=== PATIENT | female | born 1995 | race Caucasian/White ===

== ENCOUNTER 2024-06-09 10:02 | Observation (INO) | payer OTHER, SELFPAY ==
[2024-06-09 10:14] VITALS: BP 128/77; BMI 30.2
== END 2024-06-09 11:49 | disposition home or self-care (01) ==
LOC: LDRP 10:02
PROVIDERS: ADMITTING PHYSICIAN Obstetrics & Gynecology; FAMILY PHYSICIAN Family Medicine
DX: E86.9 Volume depletion, unspecified (principal); J45.909 Unspecified asthma, uncomplicated; Z86.14 Personal history of Methicillin resistant Staphylococcus aureus infection; O99.820 Streptococcus B carrier state complicating pregnancy; Z3A.39 39 weeks gestation of pregnancy
CPT/HCPCS: 36415; 86850; 86900; 86901; G0378

== ENCOUNTER 2024-06-15 09:00 | Inpatient (IN) | payer OTHER, SELFPAY ==
[2024-06-15 09:04] VITALS: BMI 30.4
[2024-06-15 09:38] VITALS: BP 121/73
[2024-06-15] MEDS: LR 1000 IV ×2 (10:00→13:38)
[2024-06-15] MEDS: PENICILLIN 110 UNITS IV (10:24)
[2024-06-15 10:48] LABS: % Basophils 0.3 % (0-2); % Eosinophils 2.1 % (0-6); % Immature Granulocytes 1.1 % (0-0.5); % Lymphocytes 12.4 % (20.5-51.1); % Monocytes 6.8 % (1.7-9.3); % Neutrophils 77.3 % (42.2-75.2); Absolute Eosinophils 0.2 10^3/uL (0-0.7); Absolute Immature Granulocytes 0.1 10^3/uL (0-0.05); Absolute Lymphocytes 1.2 10^3/uL (1.2-3.4); Absolute Monocytes 0.7 10^3/uL (0.1-0.6); Absolute Neutrophils 7.7 10^3/uL (1.4-6.5); Hematocrit 35.7 % (37.0-47.0); Hemoglobin 12.8 g/dL (12.0-16.0); Mean Corp Hgb Conc. 35.9 g/dL (33.0-37.0); Mean Corpuscular Volume 83.8 fL (81.0-99.0); Mean Platelet Volume 11.8 fL (7.4-10.4); Nucleated Red Blood Cells % 0 %; Platelet Count 148 10^3/uL (130-400); Red Blood Cell Count 4.26 10^6/uL (4.20-5.40); Red Cell Dist. Width 13.3 % (11.5-14.5)
[2024-06-15] MEDS: PITOCIN 30 UNITS/NSS 500 ML IV (11:02)
[2024-06-15] MEDS: PENICILLIN 55 UNITS IV ×2 (14:07→18:40)
[2024-06-15] MEDS: FENTANYL/BUPIVACAINE 100 EPIDURAL (16:40)
[2024-06-15] MEDS: SUBLIMAZE 100 MCG EPIDURAL (16:40)
[2024-06-16] MEDS: TYLENOL 650 MG PO ×4 (03:36→23:42)
[2024-06-16] MEDS: MOTRIN 600 MG PO ×4 (05:16→23:41)
[2024-06-16 05:41] LABS: Hemoglobin 11.8 g/dL (12.0-16.0)
[2024-06-17] MEDS: TYLENOL 650 MG PO ×2 (05:03→10:04)
[2024-06-17] MEDS: SENOKOT-S 1 TABLET PO (08:15)
[2024-06-17] MEDS: MOTRIN 600 MG PO (10:04)
[2024-06-19 11:38] LABS: Syphilis/T. pallidum Ab Reflex Negative (Negative)
== END 2024-06-17 11:30 | disposition home or self-care (01) | DRG 807 ==
LOC: LDRP 09:00
PROVIDERS: ADMITTING PHYSICIAN Obstetrics & Gynecology
PROC: 10E0XZZ Delivery of Products of Conception, External Approach (ICD-10-PCS; 2024-06-15)
PROC: 3E033VJ Introduction of Other Hormone into Peripheral Vein, Percutaneous Approach (ICD-10-PCS; 2024-06-15)
PROC: 0UQMXZZ Repair Vulva, External Approach (ICD-10-PCS; 2024-06-15)
PROC: 10907ZC Drainage of Amniotic Fluid, Therapeutic from Products of Conception, Via Natural or Artificial Opening (ICD-10-PCS; 2024-06-15)
DX: O48.0 Post-term pregnancy (principal); Z37.0 Single live birth; Z3A.40 40 weeks gestation of pregnancy; O99.824 Streptococcus B carrier state complicating childbirth; O76 Abnormality in fetal heart rate and rhythm complicating labor and delivery; O70.0 First degree perineal laceration during delivery
CPT/HCPCS: 85014; 85018; 85025; 86780; 86850; 86900; 86901

== ENCOUNTER → 2024-08-09 10:02 | Outpatient (REF) | payer OTHER, SELFPAY | LOC: HWRAD 10:02 | PROVIDERS: ATTENDING PHYSICIAN Student in an Organized Health Care Education/Training Program | DX: R07.89 Other chest pain (principal) | CPT/HCPCS: 71120; 71130 ==

== ENCOUNTER → 2024-08-28 13:07 | Outpatient (REF) | payer OTHER, SELFPAY | LOC: HWRAD 13:07 | PROVIDERS: ATTENDING PHYSICIAN Student in an Organized Health Care Education/Training Program; REFERRING PHYSICIAN Family Medicine | DX: R07.89 Other chest pain (principal) | CPT/HCPCS: 71270; Q9967 ==

== ENCOUNTER → 2024-10-23 10:27 | Outpatient (REF) | payer OTHER, SELFPAY ==
[2024-10-23 11:50] LABS: HCG, Serum Qualitative Screen Negative
== END ==
LOC: RAD 10:27
PROVIDERS: Radiology Diagnostic Radiology; ATTENDING PHYSICIAN Internal Medicine Critical Care Medicine; FAMILY PHYSICIAN Family Medicine
DX: R09.1 Pleurisy (principal)
CPT/HCPCS: 36415; 78306; 84703; A9503

== ENCOUNTER 2025-04-13 10:09 | Emergency (ER) | payer OTHER, SELFPAY ==
[2025-04-13 10:14] VITALS: BP 116/77
--- NOTE | 2025-04-13 11:09 | ED.GENMED ---
History of Present Illness
General
Chief Complaint: Fever
Source: patient
Exam Limitations: none
Time Seen by Provider: 04/13/25 10:42
Nursing documentation reviewed up to this point in time: agreed with
History of Present Illness
History of Present Illness:
30-year-old female presents Emergency Department due to fever, rash right-sided neck pain and low back pain. She developed a fever yesterday. She also developed right sided low back pain yesterday. She had been taking Bactrim for a staph
infection in her right earlobe. She has taken that for 1 week.
Past History
Past History
ED Past Medical History: Asthma and Psychiatric (Anxiety, panic disorder)
ED Past Surgical History: Gynecological (Cervix cauterization), Orthopedic (Right shoulder arthroscopy, right knee arthroscopy) and Other ([place] teeth)
Social History
Tobacco: Non-smoker
Alcohol: None
Drug: None
Personal:
Living: with family
Review of Systems
Review of Systems
Allergies reviewed?: Yes
All Other Systems: Not applicable
Constitutional: Reports fever
EENT: Reports no symptoms
Respiratory: Reports no symptoms
Cardiac: Reports no symptoms
ABD/GI: Reports no symptoms
: Reports flank pain
Musculoskeletal: Reports back pain
Skin: Reports rash
Neurological: Reports no symptoms
Endocrine: Reports no symptoms
Hematologic/Lymphatic: Reports no symptoms
Psychiatric: Reports no symptoms
Phy Exam
Physical Exam
Physical Exam:
Physical Exam
General: no apparent distress, not acutely ill
Neck: supple. no meningeal signs. normal posterior pharynx
Heart: s1/s2 regular rate and rhythm, no murmur. equal radial
pulses.
HEENT: Pupils equal round reactive to light, EOMI
Lungs: no acute respiratory distress. clear bilaterally
Abdomen: normal bowel sounds. not tender. no CVAT
Neuro: alert and oriented. no focal neurological deficits cranial nerves II through XII intact
Skin: Morbilliform rash
Psychiatric: well kept. interactive and cooperative
Extremities: no edema. no calf tenderness. negative homans. good distal pulses
Course
Orders/Labs/Results
Orders:
Orders
04/13/25 11:05
IV Insert/Care/Rem.- Treatment PRN
04/13/25 11:31
COVID-19 Antigen Urgent
Source: Nasal Swab
Complete Blood Count/With Diff Urgent
Comprehensive Metabolic Panel Urgent
Monotest Urgent
Comment: added
Urinalysis Reflex To Culture Urgent
Date Specimen was Collected: 04/13/25
Time Specimen was Collected: 11:30
Influenza A+B Rapid Molecular Urgent
ANGELICA Source: Nasal Swab
Specimen Description:
04/13/25 12:26
Add On- LAB Urgent
Tests Added?: monospot
Abnormal Lab Results
04/13/25
11:31
WBC 3.1 L 10^3/uL
(4.8-10.8)
Plt Count 107 L 10^3/uL
(130-400)
MPV 11.3 H fL
(7.4-10.4)
Absolute Lymphs (auto) 0.5 L 10^3/uL
(1.2-3.4)
Lymphocytes % 15.1 L %
(20.5-51.1)
Chloride 110 H mmol/L
(98-107)
AST 56 H U/L
(14-36)
ALT 63 H U/L
(0-35)
04/13/25 11:31
04/13/25 11:31
Vital Signs
Initial and Last Documented VS:
Initial Vital Signs
Temp Pulse Resp BP Pulse Ox
99.3 F 108 18 116/77 97
04/13/25 10:14 04/13/25 10:14 04/13/25 10:14 04/13/25 10:14 04/13/25 10:14
Last Documented Vital Signs
Temp Pulse Resp BP Pulse Ox
99.3 F 93 20 110/70 100
04/13/25 10:14 04/13/25 15:48 04/13/25 15:48 04/13/25 15:00 04/13/25 15:00
MDM/Problems Addressed
Differential Diagnosis Includes:
Cellulitis, drug rash, mono
MDM/Problems Addressed:
30-year-old female with fever, likely drug rash. No signs of meningismus. Do not suspect measles. Stable for discharge. Return precautions given.
*Pulse Oximetry
Patient hypoxic: no
*Assembler Crimper Interpretation
Rate: Assembler Crimper- N/A
*Critical Care Note
Total Time (30-74mins, 75-104mins- exclusive of procedures): Not Applicable
Patient Management
Social determinants of health affecting care: Living situation and Strong social support
Escalation/DeEscalation of care consider admission/obs:
Admit not indicated
ED Attending Note
-
Portions of this chart may have been created with voice recognition software.� Occasional wrong word or��sound alike� substitutions may have occurred due to the inherent limitations of voice recognition software.
Discharge Plan
Departure
Patient Disposition: Home (Routine Discharge)
Date of Disposition: 04/13/25
Time of Disposition: 15:05
Patient with high blood pressure during this ER visit?: No
Condition: Good
Discharge Problem:
Fever, Drug rash
Instructions: Skin rash - ED discharge instructions
Prescriptions:
No Action
28-800 mg-mcg Tablet
1 tab PO DAILY
albuterol
2 spray PRN PRN (Reason: Asthma)
Patient Comments:
Pt reports she thinks she used it 3-4 weeks ago
acetaminophen 325 mg Tablet
650 mg PO Q4HPRN PRN (Reason: MILD PAIN) Qty: 0 0RF
ibuprofen 600 mg Tablet
600 mg PO Q6HPRN PRN (Reason: MODERATE PAIN/CRAMPS) Qty: 45 0RF
Referrals:
Shamir Gardiner MD [Family Provider] - Call in 1-3 days for appt
Activity Restrictions/Additional Instructions:
Discontinue use of sulfamethoxazole�trimethoprim antibiotic. Follow-up with primary care. Return for any concerns.
Interventions
Interventions:
*Risk Screen - Suicide Last Done: 04/13/25 10:14
*General Assessment Last Done: 04/13/25 10:14
*Neglect/Abuse Screening Last Done: 04/13/25 10:14
*ED- Fall Risk Assessment Last Done: 04/13/25 11:40
*ED COVID-19 Vaccine History Last Done: 04/13/25 10:52
*Nursing Disposition Last Done: 04/13/25 15:48
ED- Neurological Assessment Last Done: 04/13/25 11:40
ED-Skin Assessment Last Done: 04/13/25 11:40
Discharge Date and Time
Discharge Date/Time: 04/13/25 15:52
Print Language: UKRAINIAN
[2025-04-13 11:35] VITALS: BP 102/64
[2025-04-13 11:52] LABS: % Eosinophils 3.6 % (0-6); % Immature Granulocytes 0.3 % (0-0.5); % Lymphocytes 15.1 % (20.5-51.1); % Monocytes 8.2 % (1.7-9.3); % Neutrophils 72.8 % (42.2-75.2); Absolute Eosinophils 0.1 10^3/uL (0-0.7); Absolute Lymphocytes 0.5 10^3/uL (1.2-3.4); Absolute Monocytes 0.3 10^3/uL (0.1-0.6); Absolute Neutrophils 2.2 10^3/uL (1.4-6.5); Hematocrit 38.4 % (37.0-47.0); Hemoglobin 13.1 g/dL (12.0-16.0); Mean Corp Hgb Conc. 34.1 g/dL (33.0-37.0); Mean Corpuscular Hgb 28.5 pg (27.0-31.0); Mean Corpuscular Volume 83.5 fL (81.0-99.0); Mean Platelet Volume 11.3 fL (7.4-10.4); Nucleated Red Blood Cells % 0 %; Platelet Count 107 10^3/uL (130-400); Red Cell Dist. Width 12.2 % (11.5-14.5); White Blood Cell Count 3.1 10^3/uL (4.8-10.8)
[2025-04-13 11:56] LABS: Urine Albumin Negative (Neg - Trace); Urine Bilirubin Negative (Negative); Urine Character Clear (Clear); Urine Color Yellow; Urine Glucose Negative (Negative); Urine Ketone Negative (Negative); Urine Leukocyte Negative (Negative); Urine Nitrite Negative (Negative); Urine Occult Blood Negative (Negative); Urine Specific Gravity 1.005 (<1.030); Urine Urobilinogen Negative (Neg - 1+)
[2025-04-13 12:00] VITALS: BP 105/68
[2025-04-13 12:02] LABS: ALT (SGPT) 63 U/L (0-35); AST (SGOT) 56 U/L (14-36); Albumin 4.2 g/dl (3.5-5.0); Alkaline Phosphatase 115 U/L (38-126); Blood Urea Nitrogen 8 mg/dl (7-17); Calcium 8.9 mg/dl (8.4-10.2); Carbon Dioxide 22 mmol/L (22-30); Chloride 110 mmol/L (98-107); Glucose 92 mg/dl (70-99); Potassium 3.9 mmol/L (3.5-5.1); Sodium 139 mmol/L (135-145); Total Bilirubin 0.5 mg/dl (0.2-1.3); Total Protein 6.7 g/dl (6.3-8.2); eGFR > 60.00
[2025-04-13 12:05] LABS: COVID-19 Antigen Negative (Negative)
[2025-04-13 13:00] VITALS: BP 110/61
[2025-04-13 13:18] LABS: Monotest Negative (Negative)
[2025-04-13 14:00] VITALS: BP 117/61
[2025-04-13 15:00] VITALS: BP 110/70
== END 2025-04-13 15:52 | disposition home or self-care (01) ==
LOC: EMR 10:09
PROVIDERS: EMERGENCY PHYSICIAN Emergency Medicine; FAMILY PHYSICIAN Family Medicine
DX: R50.9 Fever, unspecified (principal); L27.0 Generalized skin eruption due to drugs and medicaments taken internally; M54.2 Cervicalgia; M54.50 Low back pain, unspecified; R10.9 Unspecified abdominal pain; Z11.52 Encounter for screening for COVID-19; J45.909 Unspecified asthma, uncomplicated; F41.0 Panic disorder [episodic paroxysmal anxiety]; F41.9 Anxiety disorder, unspecified
CPT/HCPCS: 99283; 80053; 81003; 85025; 86308; 87502; 87811

== ENCOUNTER → 2025-08-06 12:54 | Outpatient (REF) | payer OTHER, SELFPAY | LOC: HWRAD 12:54 | PROVIDERS: ATTENDING PHYSICIAN Internal Medicine Critical Care Medicine; FAMILY PHYSICIAN Family Medicine | DX: J98.59 Other diseases of mediastinum, not elsewhere classified (principal) | CPT/HCPCS: 71250 ==